=== PATIENT | female | born 1955 | race Caucasian/White ===

== ENCOUNTER 2023-11-08 08:51 | Emergency (ER) | payer MEDICARE ==
[~2023-11-08] VITALS: Ht 147.3 cm; Wt 45.4 kg
[2023-11-08] MEDS ORDERED: DILANTIN50 MG PO (09:02)
[2023-11-08] MEDS ORDERED: IBANDRONATE SO150 M1 PO (09:03)
[2023-11-08 09:17] LABS: HEMATOCRIT 43.8 % (37.0-47.0); MEAN CELL VOLUME 96.9 fl (81.0-99.0); MEAN CORPUSCULAR HGB 32.1 pg (27.0-31.0); MEAN CORPUSCULAR HGB CONC 33.1 g/dl (33.0-37.0); MEAN PLATELET VOLUME 8.9 fl (9.6-12.3); PLATELET COUNT AUTOMATED 151 10*3/uL (130-400); RED BLOOD COUNT 4.52 10*6/uL (4.10-5.10); RED CELL DISTRI WIDTH 13.5 % (0-14.5); WHITE BLOOD COUNT 4.6 10*3/uL (4.8-10.8)
[2023-11-08 09:21] LABS: MANUAL DIFF REFLEX YES
[2023-11-08 09:37] LABS: BURR CELLS MODERATE; PLATELET SUFFICIENCY NORMAL (NORMAL); POLYCHROMASIA SLIGHT; ROULEAUX SLIGHT; TOTAL CELLS COUNTED 100 #CELLS
[2023-11-08 09:39] LABS: BUN 14 mg/dl (9-23); CHLORIDE 103 mmol/L (98-107); POTASSIUM 4.2 mmol/L (3.4-5.1)
== END 2023-11-08 10:30 | disposition home or self-care (01) ==
LOC: ED 08:51
PROVIDERS: Nurse Practitioner Family
DX: U07.1 COVID-19 (principal); Z79.899 Other long term (current) drug therapy